=== PATIENT | male | born 1965 | race African-American/Black ===

== ENCOUNTER 2018-10-19 13:37 | Outpatient (CLI) | payer MEDICAID ==
[~2018-10-19] VITALS: Ht 162.6 cm; Wt 70.3 kg
[2018-10-19] MEDS ORDERED: ZANTAC150 MG ORAL (16:12)
[2018-10-19] MEDS ORDERED: VISTARIL50 MG ORAL (16:12)
[2018-10-19] MEDS ORDERED: FLUTICASONE PRO16 G1 NASAL (16:12)
[2018-10-19] MEDS ORDERED: VIAGRA100 MG PO (16:12)
[2018-10-19] MEDS ORDERED: HYDROXYZINE HCL50 M1 PO (16:12)
[2018-10-19] MEDS ORDERED: BUPROPION XL150 MG ORAL (16:12)
[2018-10-19] MEDS ORDERED: TRUVADA1 TAB ORAL (16:13)
[2018-10-19 16:15] VITALS: BP 110/67
--- NOTE | 2018-10-19 22:30 | Consultation ---
DATE OF CONSULTATION: 10/19/2018 CHIEF COMPLAINT: Screening colonoscopy. HISTORY OF PRESENT ILLNESS: This is a very pleasant 53-year-old male with multiple medical was referred to us for screening colonoscopy. PAST MEDICAL HISTORY: 1. Depression. 2. GERD. 3. Sinusitis. PAST SURGICAL HISTORY: History of colon benign tumor, which was removed 2007. MEDICATIONS: Please see medication reconciliation list. FAMILY HISTORY: No family history of GI malignancies. SOCIAL HISTORY: Questionable alcohol use. Denies any tobacco or IV drug abuse. ALLERGIES: Penicillin. PHYSICAL EXAMINATION: VITAL SIGNS: Temperature 98.4, blood pressure is , pulse 60, and respirations 20. HEENT: Normocephalic and atraumatic. Sclerae anicteric. NECK: Supple. No evidence of lymphadenopathy. CARDIOVASCULAR: Regular rate and rhythm. Plus S1 and S2. No obvious murmur. LUNGS: Clear to auscultation bilaterally. ABDOMEN: Positive bowel sounds. Soft and nontender. No rebound. No guarding. No peritoneal sign. EXTREMITIES: No cyanosis, no clubbing, no edema ASSESSMENT AND PLAN: This is a 53-year-old male with past medical history of colonic benign lesion, which was removed in 2007. Need a screening colonoscopy. Plan to send authorization for the screening colon and we will plan to schedule after authorization is approved. The patient was given today instruction for colonoscopy, instruction for prep, and all of his questions about colonoscopy were answered. Eitan Hyman M.D. DR: GABRIELA JOB#: [id number] CC:
== END 2018-10-19 15:37 | disposition home or self-care (01) ==
LOC: PAN 13:37
DX: Z01.818 Encounter for other preprocedural examination (principal); K21.9 Gastro-esophageal reflux disease without esophagitis; F32.9 Major depressive disorder, single episode, unspecified; Z88.0 Allergy status to penicillin
CPT/HCPCS: 99202